=== PATIENT | male | born 1985 | race Caucasian/White ===

== ENCOUNTER 2020-12-28 20:06 | Emergency (ER) | payer OTHER, SELFPAY ==
--- NOTE | ~2020-12-28 | XR_ITS ---
EXAMINATION: XR ankle LT min 3V DATE: 12/28/2020 20:23 INDICATION: Lateral sided left ankle pain post injury TECHNIQUE: Anteroposterior, oblique, mortise, and lateral views of the left ankle were obtained. COMPARISON: None. FINDINGS: Alignment is normal. Subtle nondisplaced fracture extending across the base of the left fifth metatar coretta, unclear whether this involves the articular surface with either the fourth metatarsal or cuboid. No other fractures identified. Joint spaces are well maintained. Bone island at the medial cuneiform . No ankle joint effusion. Mild soft tissue swelling at the lateral midfoot adjacent to the fracture. IMPRESSION: 1. Nondisplaced fracture at the base of the left fifth metatarsal. Reviewed, dictated and finalized at location A.
--- NOTE | ~2020-12-28 | XR_ITS ---
EXAMINATION: XR foot LT min 3V DATE: 12/28/2020 20:39 INDICATION: Anterior and lateral left foot pain with TECHNIQUE: Dorsoplantar, two oblique and lateral views of the left foot were obtained. COMPARISON: Left ankle radiographs dated 12/28/2020 FINDINGS: Again seen is a subtle nondisplaced fracture at the base of the left fifth metatarsal. Alignment melyssa ins essentially anatomic. No other fractures identified. Joint spaces are normal. Bone island at the medial cuneiform. IMPRESSION: 1. Nondisplaced fracture at the base of the left fifth metatarsal. Reviewed, dictated and finalized at location A.
[2020-12-28 20:08] VITALS: BP 120/69; PULSE 75; RESP 16; TEMP 36.7; O2SAT 100
--- NOTE | 2020-12-28 20:24 | ED.GENADULT ---
HPI - General Adult General Chief complaint: Extremity Injury, Lower Stated complaint: left foot pain Time Seen by Provider: 12/28/20 20:17 Source: patient History of Present Illness HPI narrative: Patient is a 35 y/o male complaining of left foot since 3 days ago. He states that he rolled his ankle, but did not fall down. He rates his pain as 3/10. His pain is worse with weight bearing. Review of Systems Constitutional: Constitutional: Denies chills, Denies fever(s), Denies headache(s) and Denies weakness Eyes: Eyes: Denies blurry vision ENT: Denies headache(s) and Denies neck pain Cardiovascular: Cardiovascular: Denies chest pain and Denies dyspnea Respiratory: Respiratory: Denies cough and Denies dyspnea Gastrointestinal: Gastrointestinal: Denies abdominal pain, Denies diarrhea, Denies nausea and Denies vomiting Genitourinary: Genitourinary: Denies hematuria and Denies dysuria Musculoskeletal: Musculoskeletal: Denies back pain, Denies neck pain and Reports other (left foot pain) Neurologic: Denies headache(s) and Denies weakness [facility] Social History Social History Smoking status: Never smoker Alcohol intake: current Exam Const: General: no acute distress and well developed Orientation/consciousness: oriented to person, oriented to place, oriented to time and patient oriented x3 HENMT: Head: normocephalic Ears: external ears normal General nose exam: Normal external nose present Eyes: General: appearance normal, both eyes and all related structures Conjunctivae: conjunctivae normal Neck: Neck: normal visual inspection and full ROM Chest: Chest palpation & inspection: normal inspection of the chest and no tenderness Neuro: General: oriented to person, oriented to place, oriented to time and patient oriented x3 Cognition (Neuro): normal cognition Extrem: General: normal to inspection, full ROM and no pedal edema Left lower extremity: foot Details: tenderness; no edema Psych: Appearance: grossly normal Mental Status: mental status grossly normal Affect: normal affect Course Vital Signs Vital signs: Vital Signs Temperature 36.7 C 12/28/20 20:08 Pulse Rate 75 12/28/20 20:08 Respiratory Rate 16 12/28/20 20:08 Blood Pressure 120/69 12/28/20 20:08 Pulse Oximetry 100 12/28/20 20:08 Temperature 36.2 C L 12/28/20 21:20 Pulse Rate 72 12/28/20 21:20 Respiratory Rate 16 12/28/20 21:20 Blood Pressure 124/76 12/28/20 21:20 Pulse Oximetry 98 12/28/20 21:20 Medical Decision Making Vital Signs Vital Signs: Vital Signs Temperature 36.7 C 12/28/20 20:08 Pulse Rate 75 12/28/20 20:08 Respiratory Rate 16 12/28/20 20:08 Blood Pressure 120/69 12/28/20 20:08 Pulse Oximetry 100 12/28/20 20:08 Temperature 36.2 C L 12/28/20 21:20 Pulse Rate 72 12/28/20 21:20 Respiratory Rate 16 12/28/20 21:20 Blood Pressure 124/76 12/28/20 21:20 Pulse Oximetry 98 12/28/20 21:20 Discharge Plan Discharge Clinical Impression: Closed nondisplaced fracture of fifth left metatarsal bone Qualifiers: Encounter type: initial encounter Qualified Code(s): S92.355A - Nondisplaced fracture of fifth metatarsal bone, left foot, initial encounter for closed fracture Patient Disposition: Home, Self-Care Condition: Stable Instructions: Foot Fracture in Adults (ED) Follow-up/Referrals: PHYSICIAN,PACKING FLOOR WORKER [Primary Care Provider] - Emmanuel Zheng MD [Physician] - 1 Week Stand Alone Forms: Work/School Release IP
[2020-12-28 21:20] VITALS: BP 124/76; PULSE 72; RESP 16; TEMP 36.2; O2SAT 98
== END 2020-12-28 21:27 | disposition home or self-care (01) ==
PROVIDERS: Emergency Provider Emergency Medicine
DX: S92.355A Nondisplaced fracture of fifth metatarsal bone, left foot, initial encounter for closed fracture (principal); W18.40XA Slipping, tripping and stumbling without falling, unspecified, initial encounter
CPT/HCPCS: 73610; 73630; 99284

== ENCOUNTER 2022-01-19 12:14 | Emergency (ER) | payer SELFPAY ==
[2022-01-19] VITALS (7 sets, daily range): BP systolic 126–145; BP diastolic 70–93; PULSE 47–72; RESP 14–18; TEMP 36.4; O2SAT 97–100
--- NOTE | ~2022-01-19 | CT_ITS ---
EXAMINATION: CT abdomen pelvis w con DATE: 01/19/2022 14:06 INDICATION: Right upper quadrant abdominal pain. Hematemesis. TECHNIQUE: Computed tomography (CT) of the abdomen and pelvis was performed with 100 CC Omnipaque 300 intravenous contrast. Automated exposure control and iterative reconstruction technique were employe d. Exam dose: 305.92 mGy-cm total exam DLP. COMPARISON: None. FINDINGS: The lung bases are clear. Normal heart size. No pericardial or pleural effusion. Up to approximately 2.4 cm posterior right hepatic lobe and similar but larger left lateral segment h epatic hypoattenuating lesions with suggestion of peripheral puddling of contrast material, likely he patic hemangiomas. The liver, gallbladder, bile ducts, pancreas, pancreatic duct and spleen are otherwise unremarkable. The spleen measures approximately 11.3 cm vertical dimension, within normal limits. Normal morphology of the adrenal glands. Approximately 2.8 mm right ureterovesical junction calculus with mild right hydroureteronephrosis. Pinpoint nonobstructing lower pole right renal calculus. No other apparent urinary tract calculus. No left hydroureteronephrosis. The urinary bladder is other mejia unremarkable. Normal prostate gland. Normal caliber of the abdominal aorta. No intraperitoneal or retroperitoneal or pelvic mass lesion or adenopathy or ascites. Normal appendix. A diverticulum is noted at the splenic flexure of the colon and another couple near the hepatic flexure of the colon. No CT evidence of diverticulitis. No bowel obstruction, bowel wall thickening, pneumatosis or intraperitoneal free air. Bilateral L5 pars interarticularis defects with slight grade 1 anterolisthesis at L5-S1. Included ske letal structures are otherwise unremarkable. 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 Reviewed, dictated and finalized at location B. 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
[2022-01-19 12:47] LABS: Basophils Percent Auto 0.3 % (0.2-1.2); Eosinophils Percent Auto 0.1 % (0-4.4); Hematocrit 46.1 % (42.0-52.0); Immature Granulocyte Absolute 0.08 K/mm3 (0.00-0.031); Immature Granulocyte Percent A 0.6 % (0-0.5); Lymphocytes Absolute Auto 1.51 K/mm3 (0.9-3.2); Lymphocytes Percent Auto 10.9 % (18.3-44.2); Mean Corpuscular HGB Conc 34.7 g/dl (32-36); Mean Corpuscular Volume 86.3 fl (80-100); Mean Platelet Volume 9.5 fl (7.4-10.4); Monocytes Absolute Auto 0.5 K/mm3 (0.1-0.6); Monocytes Percent Auto 3.8 % (2.6-8.5); Neutrophils Absolute Auto 11.7 K/mm3 (1.3-6.7); Neutrophils Percent Auto 84.3 % (45.5-73.1); Platelet Count Result 251 k/mm3 (150-375); Red Blood Count 5.34 M/mm3 (4.6-6.20); Red Cell Distribution Width 12.5 % (11.5-14.5); White Blood Count 13.9 K/mm3 (4.5-10.0)
[2022-01-19 12:48] LABS: Add Urine Microscopic? YES; Appearance Urine Cloudy (Clear); Bilirubin Urine 1+ (Negative); Blood Urine 3+ (Negative); Color Urine Yellow (Yellow); Glucose Urine UA Negative (Negative); Ketones Urine Trace mg/dL (Negative); Leukocyte Esterase Ur Negative LEU/UL (Negative); Nitrate Urine Negative (Negative); Protein Urine 2+ mg/dL (Negative); Specific Grav Ur 1.025 (1.001-1.035); pH Urine 5.5 (5.0-9.0)
[2022-01-19 12:52] LABS: Mucus Urine Few /lpf; RBC Urine >75 /hpf (0-2); WBC Urine 16-20 /hpf
[2022-01-19 12:58] LABS: Alanine Aminotransferase 30 U/L (6-50); Albumin Level 5.1 g/dL (3.5-5.1); Alkaline Phosphatase 99 U/L (38-126); Anion Gap 8 mmol/L (8-16); Aspartate Amino Transferase 28 U/L (17-59); Bilirubin,Total 0.6 mg/dL (0.2-1.3); Blood Urea Nitrogen 12 mg/dL (9-20); Calcium 9.5 mg/dL (8.4-10.2); Carbon Dioxide 29 mmol/L (22-30); Chloride 102 mmol/L (98-107); Estimated CRCL calculation 84 ml/min; Estimated Glomerular Filt Rate > 60; Glucose 132 mg/dL (65-110); Lipase 90 U/L (23-300); Potassium 4.3 mmol/L (3.4-5.0); Sodium 139 mmol/L (137-145)
[2022-01-19] MEDS: KETOROLAC 30 MG/ML VIAL (*BKC) IV PUSH (13:55)
--- NOTE | 2022-01-19 13:55 | ED.ABDPAIN ---
HPI - Abdominal Pain General Chief Complaint: Nausea/Vomiting/Diarrhea Stated Complaint: vomiting blood Time Seen by Provider: 01/19/22 13:09 Source: patient Mode of arrival: ambulatory History of Present Illness HPI narrative: This is a 36-year-old male denies past medical history presenting with concern for severe abdominal pain for the past day, associated with multiple episodes of vomiting and hematemesis. Patient states he was in his usual state of health, when he noted constant , sharp, severe, right sided abdominal pain, radiating to the groin. This is associated with intermittent subjective fevers and chills, and decreased urination with what appears to be blood. Patient states he has vomited 6 times total, and the first 3 times without any blood, the following 3 times with bright red blood. Patient denies bleeding from any other source including bright red blood per rectum or melena. He denies chest pain, shortness of breath, or loss of consciousness. Related Data Allergies Allergy/AdvReac Type Severity Reaction Status Date / Time codeine Allergy Unknown Unknown Verified 01/19/22 12:34 Penicillins Allergy Unknown HIVES Verified 01/19/22 12:34 Review of Systems Review of Systems: CONSTITUTIONAL: +fever, chills, Denies sweats. EYES: Denies visual changes, redness, or discharge. ENT: Denies rhinorrhea, congestion, sore throat, or otalgia. CARDIOVASCULAR: Denies chest pain, palpitations, or edema. RESPIRATORY: Denies cough or dyspnea. GASTROINTESTINAL: Constant right upper quadrant sharp abdominal pain, associated with nausea and vomiting GENITOURINARY: Dysuria and hematuria SKIN: Denies rash or itching. MUSCULOSKELETAL: Denies back pain, joint pain, or myalgia. NEUROLOGIC: Denies headache, numbness, dizziness, or weakness. PSYCHIATRIC: Denies anxiety or depression. PMFSH Past Medical History Medical History (Updated 01/19/22 @ 16:14 by Mayo Moncada MD) Nondisplaced pilon fracture of right tibia, initial encounter for closed fracture Right ankle pain Social History Social History Smoking status: Never smoker Alcohol intake: current Exam Narrative: GENERAL: Well-developed, well-nourished, appears uncomfortable HEAD: Normocephalic, atraumatic. EYES: PERRLA and EOMI. ENT: Nares clear, no rhinorrhea or epistaxis. Mucous membranes moist. Oropharynx without tonsillar hypertrophy exudate or other lesions. NECK: Supple. No adenopathy or masses. No carotid bruits or JVD CHEST: Clear to auscultation. No respiratory distress. No wheezes rales or rhonchi HEART: Regular rate and rhythm. No murmur heard. Normal peripheral pulses. ABDOMEN: Soft, mild right upper quadrant tenderness to palpation without rebound, nondistended, palpable mass,normal active bowel sounds. Mild right flank tenderness to palpation EXTREMITIES: Normal range of motion. No edema. SKIN: Warm, dry, no rash. NEURO: No focal deficits. Alert and oriented x3. PSYCH: Normal mood and affect. Course Course Emergency Course: 14:02 - Bedside ultrasound shows normal-appearing gallbladder without stones or pericholecystic fluid. There is no noted free fluid in the abdomen and bladder appears decompressed. 15:28 - CT demonstrates a right-sided 2.8 mm stone, with associated hydronephrosis. UA is not concerning for UTI. Patient reevaluated, he states his pain is significantly improved. He has not vomited since present. He is amenable to a p.o. challenge. If the patient is able to tolerate will discharge with pain medications, tamsulosin, and outpatient urology follow-up. Vital Signs Vital signs: Vital Signs Temperature 97.6 F 01/19/22 12:20 Pulse Rate 60 01/19/22 12:20 Respiratory Rate 14 01/19/22 12:20 Blood Pressure 132/79 01/19/22 12:20 Pulse Oximetry 100 01/19/22 12:20 Oxygen Delivery Room Air 01/19/22 12:20 Temperature 97.6 F 01/19/22 14:25 Pulse Rate 72 0
[2022-01-19] MEDS: FAMOTIDINE 20 MG/2 ML VIAL IV PUSH (13:58)
[2022-01-19] MEDS: PROCHLORPERAZINE EDISYLATE 10 MG/2 ML VIAL IV PUSH (13:58)
[2022-01-19] MEDS: SODIUM CHLORIDE 0.9% IV 1,000 ML 999 ML IV CONT (13:58)
--- NOTE | 2022-01-19 16:04 | PC.NURSE ---
This RN called into room, patient appeared to be shaking and states he is unsure why and states he just might be cold. EDTrue Moncada notified and evaluated patient. Warm blanket was given. Per KASHMIR Moncada, no further intervention needed at this time.
== END 2022-01-19 16:43 | disposition home or self-care (01) ==
PROVIDERS: Emergency Medicine; Emergency Provider Preventive Medicine Aerospace Medicine
DX: N13.2 Hydronephrosis with renal and ureteral calculous obstruction (principal); K22.6 Gastro-esophageal laceration-hemorrhage syndrome
CPT/HCPCS: 36415; 74177; 80053; 81001; 83690; 85025; 87086; 96361; 96374; 96375; 99284; J0780; J1885; J7030; Q9967